=== PATIENT | female | born 1990 | race African-American/Black ===

== ENCOUNTER 2019-01-03 19:12 | Emergency (ER) | payer MEDICAID ==
[~2019-01-03] VITALS: Ht 167.6 cm; Wt 63.5 kg
--- NOTE | 2019-01-03 19:30 | NUR ---
ED Nurse Note: Patient kelvin RA 68 from home c/o behavioral complaint, patient's family was the one who called 911 and wanted her to be evaluated, denies any pain
[2019-01-03 19:56] VITALS: BP 121/75
--- NOTE | 2019-01-03 20:49 | Emergency Room Report ---
History of Present Illness General Chief Complaint: Behavioral Complaint Source: Patient (Aubrie Gardner) Present Illness HPI 28 YO female presents to the ED by RA after Familly called 911 and reports pt. was missing for 5-7. hx of bipolar. reports bizarre behavior. Denies drug use. pt reports previously taking Lexapro, last dose unknown. HPI and ROS limited due to poor pt. cooperation. Denies Si/HI, denies pain, denies having any medical complaints at this time. (Aubrie Gardner) Allergies: Coded Allergies: No Known Allergies (Unverified , 01/03/19) Patient History Past Medical History: see triage record Past Surgical History: unable to obtain Pertinent Family History: unable to obtain Last Menstrual Period: 12/15/18 Now: No Reviewed Nursing Documentation: PMH: Agreed; PSxH: Agreed (Aubrie Gardner) Nursing Documentation-PMH Past Medical History: No Stated History (Aubrie Gardner) Review of Systems All Other Systems: limited (Aubrie Gardner) Physical Exam Vital Signs Date Time Temp Pulse Resp B/P (MAP) Pulse Ox O2 Delivery O2 Flow Rate FiO2 01/03/19 19:15 99.0 95 18 121/75 100 Room Air Sp02 EP Interpretation: reviewed, normal General Appearance: no apparent distress, alert, GCS 15, non-toxic Head: normocephalic, atraumatic Eyes: bilateral eye normal inspection, bilateral eye PERRL ENT: hearing grossly normal, normal voice Neck: full range of motion, no bony tend Respiratory: chest non-tender, lungs clear, normal breath sounds, speaking full sentences Cardiovascular #1: regular rate, rhythm Gastrointestinal: non tender, soft Musculoskeletal: back normal, gait/station normal, normal range of motion, non- tender Neurologic: alert, oriented x3, responsive, motor strength/tone normal, sensory intact, normal gait, speech normal, grossly normal Psychiatric: other - Pt has flat affect. non-aggressive, Does not provide much detail/ not talkative. Depressed/withdrawn mood. Skin: normal color, no rash, warm/dry, well hydrated Lymphatic: no adenopathy (Aubrie Gardner) Medical Decision Making PA Attestation Dr. gamez is my supervising Physician whom patient management has been discussed with. Medical: Substance Abuse, Other - unknown psych and possible drug use. Behavioral: Depression Reaction to Intervention: Improved Restraint Reassesment IAubrie PA, have personally evaluated this patient. Laboratory tests have been reviewed and addressed accordingly. The patient is deemed to present a danger to themselves and/or others. This is based on the exam, history ( provided by patient, EMS/[facility] and/or family) and observed or reported behavior. Attempts for non-invasive measures have been considered and/or attempted, however, have been futile. It is in the best interest of the nursing staff, the patient, and others involved in this patient's care that behavioral restraints be applied. Patient evaluation reveals the following: (Aubrie Gardner) Diagnostic Impression: Primary Impression: Behavioral change Additional Impressions: Psychosis Qualified Codes: F29 - Unspecified psychosis not due to a substance or known physiological condition Gravely disabled ER Course 28 YO female presents to the ED by RA after Familly called 911 and reports pt. was missing for 5-7. hx of bipolar. reports bizarre behavior. Denies drug use. pt reports previously taking Lexapro, last dose unknown. HPI and ROS limited due to poor pt. cooperation. Denies Si/HI, denies pain, denies having any medical complaints at this time. Pt has flat affect. non-aggressive, Does not provide much detail/ not talkative. Ddx considered but are not limited to OD, SI/HI, psychosis, UTI, intoxication Vital signs: are WNL, pt. is afebrile H&PE are most consistent with behavioral/mental health issue ORDERS: -CBC, CMP: Unremarkable -UA: negative for infection/ unremarkable see results attached. -UDS: POSITIVE for AMPHETAMINES -Salicylates and Acetaminophen -WNL -Serum ETOH - No evidence of acute intoxication ED INTERVENTIONS: - Haldol 10mg IM -Ativan 1mg IM -Benadryl 50mg IM ---Leather restraints were required until pt. was calm DISPOSITION: patient is medically cleared and will be under ED observation awaiting psychiatric evaluation for final disposition and transfer to appropriate facility. Labs Test 01/03/19 20:30 01/03/19 20:50 White Blood Count 10.3 K/UL (4.8-10.8) Red Blood Count 4.44 M/UL (4.20-5.40) Hemoglobin 13.5 G/DL (12.0-16.0) Hematocrit 39.8 % (37.0-47.0) Mean Corpuscular Volume 90 FL (80-99) Mean Corpuscular Hemoglobin 30.5 PG (27.0-31.0) Mean Corpuscular Hemoglobin Concent 34.0 G/DL (32.0-36.0) Red Cell Distribution Width 12.0 % (11.6-14.8) Platelet Count 300 K/UL (150-450) Mean Platelet Volume 6.4 FL (6.5-10.1) Neutrophils (%) (Auto) 70.3 % (45.0-75.0) Lymphocytes (%) (Auto) 22.1 % (20.0-45.0) Monocytes (%) (Auto) 5.3 % (1.0-10.0) Eosinophils (%) (Auto) 1.2 % (0.0-3.0) Basophils (%) (Auto) 1.0 % (0.0-2.0) Sodium Level 141 MMOL/L (136-145) Potassium Level 3.4 MMOL/L (3.5-5.1) Chloride Level 104 MMOL/L (98-107) Carbon Dioxide Level 28 MMOL/L (21-32) Anion Gap 9 mmol/L (5-15) Blood Urea Nitrogen 14 mg/dL (7-18) Creatinine 0.7 MG/DL (0.55-1.30) Estimat Glomerular Filtration Rate > 60 mL/min (>60) Glucose Level 77 MG/DL (74-106) Calcium Level 8.9 MG/DL (8.5-10.1) Total Bilirubin 0.2 MG/DL (0.2-1.0) Aspartate Amino Transf (AST/SGOT) 21 U/L (15-37) Alanine Aminotransferase (ALT/SGPT) 23 U/L (12-78) Alkaline Phosphatase 91 U/L (46-116) Total Protein 8.0 G/DL (6.4-8.2) Albumin 4.0 G/DL (3.4-5.0) Globulin 4.0 g/dL Albumin/Globulin Ratio 1.0 (1.0-2.7) Salicylates Level 1.8 ug/mL (2.8-20) Acetaminophen Level < 2 MCG/ML (10-30) Serum Alcohol < 3 mg/dL Urine Opiates Screen Negative (NEGATIVE) Urine Barbiturates Screen Negative (NEGATIVE) Phencyclidine (PCP) Screen Negative (NEGATIVE) Urine Amphetamines Screen Positive (NEGATIVE) Urine Benzodiazepines Screen Negative (NEGATIVE) Urine Cocaine Screen Negative (NEGATIVE) Urine Marijuana (THC) Screen Negative (NEGATIVE) (Aubrie Gardner) ER Course Patient brought in for bizarre behavior. She appeared to have acute psychosis. Also with positive for amphetamine. She is gravely disabled. Does of that, I placed her on a 5150 hold. (Frederick Argueta MD) Last Vital Signs Date Time Temp Pulse Resp B/P (MAP) Pulse Ox O2 Delivery O2 Flow Rate FiO2 01/03/19 19:56 99.0 95 18 121/75 100 Room Air (Aubrie Gardner) Status: improved (Frederick Argueta MD) Disposition: XFER TO PSYCH HOSP/UNIT Condition: Stable Signed Out To: Dr. Argueta (Aubrie Gardner) Aubrie Gardner Jan 03, 2019 20:49 Frederick Argueta MD Jan 04, 2019 01:48
[2019-01-03 20:58] LABS: EOSINOPHILS % (AUTO) 1.2 % (0.0-3.0); HEMATOCRIT 39.8 % (37.0-47.0); HEMOGLOBIN 13.5 G/DL (12.0-16.0); LYMPHOCYTES % (AUTO) 22.1 % (20.0-45.0); MEAN CORPUSCULAR VOLUME 90 FL (80-99); MONOCYTES % (AUTO) 5.3 % (1.0-10.0); NEUTROPHILS % (AUTO) 70.3 % (45.0-75.0); PLATELET COUNT 300 K/UL (150-450); RED BLOOD COUNT 4.44 M/UL (4.20-5.40); WHITE BLOOD COUNT 10.3 K/UL (4.8-10.8)
[2019-01-03 20:59] LABS: ANION GAP 9 mmol/L (5-15); BLOOD UREA NITROGEN 14 mg/dL (7-18); CALCIUM 8.9 MG/DL (8.5-10.1); CARBON DIOXIDE 28 MMOL/L (21-32); CHLORIDE 104 MMOL/L (98-107); CREATININE 0.7 MG/DL (0.55-1.30); POTASSIUM 3.4 MMOL/L (3.5-5.1); SODIUM 141 MMOL/L (136-145)
[2019-01-03] MEDS ORDERED: Haloperidol 5mg/ml Inj IM ONE (21:00)
[2019-01-03 21:04] LABS: ALANINE AMINOTRANSFERASE 23 U/L (12-78); ALKALINE PHOSPHATASE 91 U/L (46-116); ASPARTATE AMINO TRANSFERASE 21 U/L (15-37); BILIRUBIN,TOTAL 0.2 MG/DL (0.2-1.0)
[2019-01-03 21:20] VITALS: BP 132/84
[2019-01-03] MEDS ORDERED: LORazepam Inj 2mg/ml 1ml IM ONE (21:30)
[2019-01-03] MEDS ORDERED: DiphenhydrAMINE 50mg/ml Inj IM ONE (21:30)
--- NOTE | 2019-01-03 21:30 | NUR ---
ER Nurse Note: Pt became uncooperative after providing blood and urine. Pt was refusing all treatment and yelling she needed to leave. Per Aubrie ER LANI and Dr. Belcher, ER decision, pt is unsafe to be discharged from hospital. Security called; multiple staff members talked and tried to calm down pt. Food, drinks given; pt slightly less agitated but continues to be danger to self and others. ERPA and ERMD aware; restraints initiated and IM medication given.
--- NOTE | 2019-01-03 23:08 | NUR ---
ER Nurse Note: Pt asleep but occationaly wakes up and tries to get out of bed. Pt is reorientated each time and goes back to sleep. Pt is not ready for be taken off restraints. All safety measures met; will conitnue to ruben.
[2019-01-03 23:52] VITALS: BP 122/70
[2019-01-04] VITALS: BP 128/80
--- NOTE | 2019-01-04 | NUR ---
ER Nurse Note: Per Dr. Argueta, pt was put on a 5150 hold. Belongings taken and put in locker 3. Pt asleep, calm, VSS, no signs of distress. Per ERMD orders, restrants DC. Skin intact, cap refill less than 3 sec. All safety measures met; will continue to monitor.
[2019-01-04 04:34] VITALS: BP 124/74
--- NOTE | 2019-01-04 04:36 | NUR ---
ER Nurse Note: Pt calm and asleep, VSS, no signs of distress. Pt denies pain, no longer on restraints. Pt is being transfered for continuity of care; awaiting transport. All safety measures met; will continue to monitor.
[2019-01-04 05:15] VITALS: BP 124/74
--- NOTE | 2019-01-04 05:15 | NUR ---
ER Nurse Note: Report given to TANIKA Marte for continuity of care. Pt asleep and calm, VSS, no signs of distress. All belongings taken and given to EMS.
== END 2019-01-04 05:15 ==
LOC: EDBD 19:12 → EMR 19:51
DX: F91.9 Conduct disorder, unspecified (principal); F29 Unspecified psychosis not due to a substance or known physiological condition; F15.10 Other stimulant abuse, uncomplicated
CPT/HCPCS: 36415; 80053; 80307; 80329; 81025; 85025; 96372; 99284; J1200; J1630